=== PATIENT | female | born 1990 | race Two or more races ===

== ENCOUNTER 2022-10-03 22:59 | Emergency (ER) | payer MEDICAID, OTHER ==
[~2022-10-03] VITALS: Ht 172.7 cm; Wt 74.6 kg
[2022-10-03 23:10] VITALS: BP 132/82
[2022-10-04] MEDS ORDERED: IBUPROFEN 800 MG TAB PO ONE (04:00)
== END 2022-10-04 05:33 | disposition home or self-care (01) ==
LOC: ER 22:59
DX: S09.92XA Unspecified injury of nose, initial encounter (principal); W51.XXXA Accidental striking against or bumped into by another person, initial encounter; Y93.I9 Activity, other involving external motion; Y92.89 Other specified places as the place of occurrence of the external cause; Y99.8 Other external cause status